=== PATIENT | male | born 1980 | race American Indian/Alaskan Native ===

== ENCOUNTER 2019-10-12 23:13 | Emergency (ER) | payer SELFPAY ==
[2019-10-13] LABS: Basophils # (Auto) 0.1 K/mm3 (0.0-0.1); Basophils % (Auto) 1.1 % (0.0-1.8); Eosinophils # (Auto) 0.2 K/mm3 (0.0-0.4); Eosinophils % (Auto) 1.8 % (0.0-4.3); Lymphocytes # (Auto) 3.8 K/mm3 (1.2-5.4); Lymphocytes % (Auto) 30.6 % (13.4-35.0); Mean Corpuscular Volume 93 fl (84-94); Monocytes # (Auto) 0.6 K/mm3 (0.0-0.8); Monocytes % (Auto) 5.1 % (0.0-7.3); Platelet Count 226 K/mm3 (140-440); Red Cell Distribution Width 13.4 % (13.2-15.2)
[2019-10-13 00:03] LABS: INR 0.87 (0.87-1.13)
[2019-10-13 00:06] LABS: Albumin 3.7 g/dL (3.9-5); BUN/Creatinine Ratio 16; Blood Urea Nitrogen 16 mg/dL (9-20); Calcium 8.8 mg/dL (8.4-10.2); Hemolysis Index 137
[2019-10-13 00:09] LABS: Hemoglobin 15.8 gm/dl (11.8-15.2)
[2019-10-13 00:11] LABS: Mean Corpuscular HGB Conc 38 % (32-34)
[2019-10-13 00:38] LABS: Alanine Aminotransferase < 5 units/L (7-56)
[2019-10-13 00:48] VITALS: BP 149/93
[2019-10-13] MEDS ORDERED: SODIUM CHLORIDE 0.9% 1000 ML 1,000 ML IV ONE (01:24)
--- NOTE | 2019-10-13 01:30 | XRay Report ---
CHEST 1 VIEW, 10/13/2019 12:44 AM CLINICAL INFORMATION/INDICATION: Chest pain. Tachycardia. COMPARISON: None FINDINGS: SUPPORT DEVICES: None. HEART: Cardiac silhouette is normal in size. LUNGS/PLEURA: No focal airspace disease or significant pleural effusion is seen. ADDITIONAL FINDINGS: No additional acute findings. IMPRESSION: 1. No evidence of acute cardiopulmonary process. Signer Name: Gabby Sainz MD Signed: 10/13/2019 1:26 AM Workstation Name: [id number] [id number]
--- NOTE | 2019-10-13 02:04 | Emergency Department Report ---
ED Syncope HPI - General Chief Complaint: Syncope Stated Complaint: PASSED OUT Time Seen by Provider: 10/13/19 00:36 - History of Present Illness Initial Comments: Patient reports a brief syncopal episode lasting seconds tonight at home. Denies PMHx. Denies trauma. Reports he has had episodes of diarrhea over the past 3 days. Reports he did smoke marijuana today. Denies alcohol. Timing/Prior Episodes: single episode today Precipitating Factors: Positive: none Context: sitting Loss of Consciousness: brief (seconds) Current Symptoms: back to normal - Related Data Allergies/Adverse Reactions: Allergies No Known Allergies Allergy (Verified 06/24/15 22:31) Home Medications: Ambulatory Orders Nicotine [Habitrol] 14 mg TD DAILY #30 patch 11/25/14 Simvastatin [Zocor] 10 mg PO QHS #30 tablet 11/25/14 oxyCODONE /ACETAMINOPHEN [Percocet 5/325 mg] 1 tab PO Q6H PRN #20 tablet 11/25/14 Ciprofloxacin HCl [Ciprofloxacin TAB] 500 mg PO Q12H #14 tab 06/25/15 Ibuprofen [Motrin 800 MG tab] 800 mg PO Q8HR PRN #30 tablet 06/25/15 traMADoL [Ultram 50 MG tab] 50 mg PO Q6HR PRN #20 tablet 06/25/15 Ciprofloxacin HCl [Ciprofloxacin TAB] 500 mg PO Q12H #20 tab 11/12/15 Hyoscyamine Subl [Levsin Sl 0.125 TAB] 0.125 mg SL Q6HR PRN #12 tab 11/12/15 Lisinopril [Zestril TAB] 10 mg PO QDAY #30 tablet 11/12/15 Promethazine [Phenergan TAB] 25 mg PO Q6HR PRN #20 tab 11/12/15 metroNIDAZOLE [Flagyl] 500 mg PO Q12HR #20 tab 11/12/15 ED Review of Systems ROS: Stated complaint: PASSED OUT Other details as noted in HPI Other: GENERAL: No weight change, fatigue, fever, chills, or night sweats SKIN: No changes in skin or hair, no itching, no rashes, no jaundice HEAD: No trauma EYES: No blurriness, tearing, itching, acute visual loss, conjunctival discoloration, or scleral icterus EARS: No hearing loss, tinnitus, vertigo, or earache NOSE: No rhinorrhea, stuffiness, sneezing, itching, or epistaxis MOUTH: No bleeding gums, hoarseness, sore throat, or swelling CARDIAC: No new murmur, chest pain, palpitations, dyspnea on exertion, orthopnea, PND, or edema RESPIRATORY: No shortness of breath, wheeze, cough, sputum production, hemoptysis GI: No nausea, vomiting, dysphagia, diarrhea, constipation, hematemesis, melena, hematochezia, or abdominal pain URINARY: No frequency, urgency, polyuria, dysuria, hematuria, or incontinence MUSCULOSKELETAL: No muscle weakness, joint stiffness, decrease in range of motion, redness, swelling NEUROLOGIC: Syncope. No headache, loss of sensation, numbness, tingling, tremors, weakness, paralysis, seizures HEMATOLOGIC: No anemia, easy bruising, bleeding, petechiae, or purpura ENDOCRINE: No hot or cold intolerance, sweating, polyuria, polydipsia or, polyphagia no thyroid problems PSYCHIATRIC: No change in mood, no anxiety, no depression ED Past Medical Hx - Past Medical History Previous Medical History?: Yes Hx Hypertension: Yes (off meds) Hx Congestive Heart Failure: No Hx Diabetes: No Hx Asthma: No Hx COPD: No - Surgical History Past Surgical History?: No - Social History Smoking Status: Current Every Day Smoker Substance Use Type: Marijuana - Medications Home Medications: Home Medications Medication Instructions Recorded Confirmed Last Taken Type Nicotine [Habitrol] 14 mg TD DAILY #30 patch 11/25/14 Unknown Rx Simvastatin [Zocor] 10 mg PO QHS #30 tablet 11/25/14 Unknown Rx oxyCODONE /ACETAMINOPHEN [Percocet 1 tab PO Q6H PRN #20 tablet 11/25/14 Unknown Rx 5/325 mg] Ciprofloxacin HCl [Ciprofloxacin 500 mg PO Q12H #14 tab 06/25/15 Unknown Rx TAB] Ibuprofen [Motrin 800 MG tab] 800 mg PO Q8HR PRN #30 tablet 06/25/15 Unknown Rx traMADoL [Ultram 50 MG tab] 50 mg PO Q6HR PRN #20 tablet 06/25/15 Unknown Rx Ciprofloxacin HCl [Ciprofloxacin 500 mg PO Q12H #20 tab 11/12/15 Unknown Rx TAB] Hyoscyamine Subl [Levsin Sl 0.125 0.125 mg SL Q6HR PRN #12 tab 11/12/15 Unknown Rx TAB] Lisinopril [Zestril TAB] 10 mg PO QDAY #30 tablet 11/12/15 Unknown Rx Promethazine [Phenergan TAB] 25 mg PO Q6HR PRN #20 tab 11/12/15 Unknown Rx metroNIDAZOLE [Flagyl] 500 mg PO Q12HR #20 tab 11/12/15 Unknown Rx ED Physical Exam - General Limitations: No Limitations - Other Other exam information: GENERAL: Patient in no acute distress HEAD: Normocephalic, atraumatic EYES: PERRLA, EOM intact, no scleral icterus, no conjunctival hemorrhage, visual conrad and acuity wnl NOSE: No tenderness, discharge, sinus tenderness MOUTH: No erythema, bleeding, exudate HEART: Regular rate and rhythm, no murmur, S1-S2 are auscultated, no edema, pulses are symmetric LUNGS: No respiratory distress. Bilateral breath sounds, No tachypnea, No retractions, No wheezing, rales, rhonchi ABDOMEN: Normal bowel sounds, abdomen soft, no tenderness, no rebound, no guarding, no distention, no masses, no CVA tenderness MUSCULOSKELETAL: Normal joint range of motion, no redness, no swelling, no tenderness NEUROLOGIC: GCS 15, Alert and Oriented x3, Cranial nerves intact, normal sensation, normal strength, no cerebellar deficit, NIHSS 0 PSYCHIATRIC: No homicidal or suicidal ideation, no anxiety, no depression, no hallucinations SKIN: Skin is warm and dry, no wounds, no rashes NEUROLOGIC: normal gait ED Course Vital Signs 10/12/19 10/13/19 10/13/19 23:17 00:46 01:22 Temperature 98.4 F Pulse Rate 108 H 100 H Respiratory 20 18 16 Rate Blood Pressure 151/90 Blood Pressure 149/93 [Left] O2 Sat by Pulse 98 98 Oximetry ED Medical Decision Making - Lab Data Result diagrams: 10/12/19 23:36 10/12/19 23:36 Laboratory Results - last 24 hr 10/12/19 10/12/19 10/12/19 23:36 23:36 23:36 WBC 12.4 H RBC 4.50 Hgb 15.8 H Hct 42.0 MCV 93 MCH 35 H MCHC 38 H* RDW 13.4 Plt Count 226 Lymph % (Auto) 30.6 [place] % (Auto) 5.1 Eos % (Auto) 1.8 Baso % (Auto) 1.1 Lymph # 3.8 [place] # 0.6 Eos # 0.2 Baso # 0.1 Seg Neutrophils % 61.4 Seg Neutrophils # 7.6 PT 11.8 L INR 0.87 D-Dimer Sodium 139 Potassium 3.8 Chloride 100.5 Carbon Dioxide 23 Anion Gap 19 BUN 16 Creatinine 1.0 Estimated GFR > 60 BUN/Creatinine Ratio 16 Glucose 111 H Calcium 8.8 Magnesium 2.20 Total Bilirubin < 0.20 AST < 5 L ALT < 5 L Alkaline Phosphatase 70 Total Creatine Kinase 601 H Troponin T Total Protein 6.9 Albumin 3.7 L Albumin/Globulin Ratio 1.2 Plasma/Serum Alcohol 10/12/19 10/12/19 10/13/19 23:36 23:36 01:24 WBC RBC Hgb Hct MCV MCH MCHC RDW Plt Count Lymph % (Auto) [place] % (Auto) Eos % (Auto) Baso % (Auto) Lymph # [place] # Eos # Baso # Seg Neutrophils % Seg Neutrophils # PT INR D-Dimer 169.28 Sodium Potassium Chloride Carbon Dioxide Anion Gap BUN Creatinine Estimated GFR BUN/Creatinine Ratio Glucose Calcium Magnesium Total Bilirubin AST ALT Alkaline Phosphatase Total Creatine Kinase Troponin T < 0.010 Total Protein Albumin Albumin/Globulin Ratio Plasma/Serum Alcohol < 0.01 - EKG Data When compared to previous EKG there are: no significant change - Radiology Data Radiology results: report reviewed - Medical Decision Making Patient comfortable. Reports symptom improvement. Updated with results. Plan discharge with outpatient follow up. Return if any worsening. Critical care attestation.: If time is entered above; I have spent that time in minutes in the direct care of this critically ill patient, excluding procedure time. ED Disposition Clinical Impression: Dehydration Syncope Qualifiers: Syncope type: unspecified Qualified Code(s): R55 - Syncope and collapse Disposition: - TO HOME OR SELFCARE Is pt being admited?: No Condition: Stable Instructions: Dehydration (ED), Syncope (ED) Referrals: KATE HERNANDEZ MD [Primary Care Provider] - 2-3 Days BIN CAN MD [Staff Physician] - 2-3 Days GISELE LARA MD [Staff Physician] - 2-3 Days Time of Disposition: 02:15
== END 2019-10-13 03:05 | disposition home or self-care (01) ==
LOC: ED 23:13
DX: E86.0 Dehydration (principal); R55 Syncope and collapse; I10 Essential (primary) hypertension; F17.200 Nicotine dependence, unspecified, uncomplicated; F12.10 Cannabis abuse, uncomplicated; Z79.899 Other long term (current) drug therapy; Z79.1 Long term (current) use of non-steroidal anti-inflammatories (NSAID)
CPT/HCPCS: 36415; 71045; 80053; 82550; 83735; 84484; 85025; 85379; 85610; 93005; 93010; 96360; 99284; J7030; 80320; G0480